=== PATIENT | female | born 2000 | race African-American/Black ===

== ENCOUNTER 2019-11-01 09:10 | Emergency (ER) | payer OTHER, SELFPAY ==
[2019-11-01 09:23] VITALS: BP 106/58; PULSE 78; RESP 18; TEMP 36.8; O2SAT 98
[2019-11-01 10:29] LABS: Bacteria Urine Few (2-10); Culture Indicated Urine Cult Not Indicated; RBC Urine 0-1/HPF (0-5/HPF); Squamous Epithelial Cell Urine 5-10 /HPF (0-5/HPF); WBC Urine 1-5/HPF (0-5/HPF)
--- NOTE | 2019-11-01 11:27 | ED_ITS ---
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 She reports LMP was about 6 weeks ago but does not remember exact date. She has been having mild cramping pain for last 10 days without vaginal bleeding or spotting. No history of in the past. Patient had taken home test which was positive but she reports couldn't believe so she is here today. Patient reports has not been using contraceptive and she is sexually active. Related Data Previous Rx's Medication Instructions Recorded prenat.vits,wil,zqr-kizo-iqweo 1 tab PO DAILY #60 tab 11/01/19 Allergies Allergy/AdvReac Type Severity Reaction Status Date / Time No Known Drug Allergies Allergy Verified 11/01/19 09:27 Review of Systems <JAYLON Boston - Last Filed: 11/01/19 11:32> Review of Systems Narrative: General: Denies fever, chills, fatigue, malaise, sweats. HEENT: Denies sinus pain, ear pain, sore throat, difficulty swallowing, dizziness. Respiratory: Denies dyspnea, cough, wheezing, hemoptysis, sputum. Cardiovascular: Denies chest pain, palpitations, orthopnea, edema. Gastrointestinal: See HPI : See HPI Musculoskeletal: Denies weakness, joint pain or bony pain. Skin: Denies rash, skin lesions, or other. Neurologic: Denies weakness, headache, numbness, change in speech, confusion, seizures, incoordination. Psychiatric: No concerning psychosocial issues. 12-point review of systems is negative except for those stated above. Patient History <JAYLON Boston - Last Filed: 11/01/19 11:32> Medical History (Updated 11/01/19 @ 11:29 by JAYLON Boston) No significant past medical history (Acute) Surgical History (Updated 11/01/19 @ 11:29 by JAYLON Boston) No pertinent past surgical history (Acute) Social History Smoking Status: Never smoker Smoking Status: Never smoker alcohol intake frequency: 0-2 drinks per day Substance Use Type: does not use Exam <JAYLON Boston - Last Filed: 11/01/19 11:32> Narrative Exam Narrative: General appearance: well developed, well nourished, in no acute distress. Head: normocephalic, atraumatic, no scalp lesions, non-tender. ENT: Hearing grossly intact. Nose without bleeding, purulent discharge, septal hematoma or deviation. A-irway patent. Neck/Thyroid: neck supple, full range of motion, no visible masses or meningeal signs. No JVD, non-tender without lymphadenopathy. Skin: no suspicious rashes, lesions over visible areas. Warm and dry and appropriate color for ethnicity. Heart: no clubbing, no cyanosis, no edema. S1 and S2 normal. RRR w/o murmurs, clicks, or bruits. Lungs: Breathing even and unlabored. No stridor. No accessory muscles used. Able to speak in full sentences. Chest: normal shape and expansion. Abdomen: non-obese, non-distended. Nontender to palpate. Active bowel sounds in 4 quadrants. Neurologic: alert and oriented. Cognitive exam, [employer] REC[employer] COORDINATOR and PNS grossly intact on informal exam. Psych: good eye contact, normal affect. Initial Vital Signs Initial Vital Signs: Vital Signs Temperature 98.3 F 11/01/19 09:23 Pulse Rate 78 11/01/19 09:23 Respiratory Rate 18 11/01/19 09:23 Blood Pressure 106/58 L 11/01/19 09:23 Pulse Oximetry 98 11/01/19 09:23 <Pankaj Recinos MD - Last Filed: 11/01/19 17:07> Initial Vital Signs Initial Vital Signs: Vital Signs Temperature 98.3 F 11/01/19 09:23 Pulse Rate 78 11/01/19 09:23 Respiratory Rate 18 11/01/19 09:23 Blood Pressure 106/58 L 11/01/19 09:23 Pulse Oximetry 98 11/01/19 09:23 Scores <JAYLON Boston - Last Filed: 11/01/19 11:32> GCS [place] coma scale eye opening: Spontaneous [place] coma scale verbal response: Orientated [place] coma scale motor response: Obey commands [place] coma scale total score: 15 Course <JAYLON Boston - Last Filed: 11/01/19 11:32> Orders Ordered: ED Orders 11/01/19 09:35 Urine Microscopic Stat Vital Signs Vital signs: Vital Signs - 8 hr 11/01/19 09:23 11/01/19 11:34 Temperature 98.3 F Pulse Rate 78 80 Respiratory Rate 18 16 Blood Pressure 106/58 L 103/75 Pulse Oximetry 98 100 <Pankaj Recinos MD - Last Filed: 11/01/19 17:07> Orders Ordered: ED Orders 11/01/19 09:35 Urine Microscopic Stat Vital Signs Vital signs: Vital Signs - 8 hr 11/01/19 09:23 11/01/19 11:34 Temperature 98.3 F Pulse Rate 78 80 Respiratory Rate 18 16 Blood Pressure 106/58 L 103/75 Pulse Oximetry 98 100 MDM - Recheck/Abnormal Lab/Rx <JAYLON Boston - Last Filed: 11/01/19 11:32> Differential Diagnosis Differential diagnosis: Likely other (, UTI) Medical Records Attestation: I reviewed the patient's medical records. Lab Data Attestation: I reviewed the patient's lab results. Labs: Lab Results 11/01/19 Range/Units 09:35 Urine RBC 0-1/hpf (0-5/HPF) Urine WBC 1-5/hpf (0-5/HPF) Ur Squamous Epith Cells 5-10 /hpf H (0-5/HPF) Urine Bacteria Few (2-10) H (None) Ur Culture Indicated? Cult not indicated Point of Care Testing Test Results Positive Urine Dip Bedside Urine Glucose Negative Bedside Urine Bilirubin - Negative Bedside Urine Ketone - Negative Urine Specific [place] 1.020 Bedside Urine Occult Blood - Negative Bedside Urine pH 7.0 Bedside Urine Protein +/- 15 Bedside Urine Urobilinogen - Negative Bedside Urine Nitrite - Negative Bedside Urine Leukocytes +/- 15 Esterase MDM Narrative Medical decision making narrative: This is a 19-year-old female who is in [place] presents to ED with would like test confirmed. Today's test for urine was positive. Urine test does not show obvious infection at this time. Patient discharged to home with vitamin and advised to follow up with primary care physician. This is . Patient does not complain vaginal bleeding or severe abdominal pain but mild cramping discomfort last 10 days. Patient advised to take [id number] Tylenol as needed for discomfort. Return precautions were discussed with patient and patient verbalized understanding and in agreement with the treatment plan. <Pankaj Recinos MD - Last Filed: 11/01/19 17:07> Lab Data Labs: Lab Results 11/01/19 Range/Units 09:35 Urine RBC 0-1/hpf (0-5/HPF) Urine WBC 1-5/hpf (0-5/HPF) Ur Squamous Epith Cells 5-10 /hpf H (0-5/HPF) Urine Bacteria Few (2-10) H (None) Ur Culture Indicated? Cult not indicated Point of Care Testing Test Results Positive Urine Dip Bedside Urine Glucose Negative Bedside Urine Bilirubin - Negative Bedside Urine Ketone - Negative Urine Specific [place] 1.020 Bedside Urine Occult Blood - Negative Bedside Urine pH 7.0 Bedside Urine Protein +/- 15 Bedside Urine Urobilinogen - Negative Bedside Urine Nitrite - Negative Bedside Urine Leukocytes +/- 15 Esterase Discharge Plan Departure Patient Disposition: Home Clinical Impression: Qualifiers: Weeks of gestation: less than 8 weeks Qualified Code(s): Z3A.01 - Less than 8 weeks gestation of Discharge Date/Time: 11/01/19 11:35 Instructions: DI for -- Discomforts and Remedies Activity Restrictions/Additional Instructions: You have been diagnosed with [early in per urine test. Urine test does not appears to be having on infection at this time. ]. What to do: *Take your medications as directed. vitamin has been transmitted to [facility]. *Follow up with your primary care provider in 2-3 days, call for an appointment. Let them know you were seen in the ED and that we asked you to be seen in follow up. *Return to ED if you have any new, worsening, or concerning symptoms, such as [abdominal pain, vaginal bleeding, chest pain, breathing difficulty, unable to tolerate fluids or any acute concerns]. Prescriptions: New prenat.vits,wil,avp-gydm-gabmy Tablet 1 tab PO DAILY Qty: 60 RF: 0 Referrals: [facility] [Outside]
[2019-11-01 11:34] VITALS: BP 103/75; PULSE 80; RESP 16; O2SAT 100
== END 2019-11-01 11:35 | disposition home or self-care (01) ==
PROVIDERS: Emergency Medicine; Emergency Provider Nurse Practitioner Family
DX: Z32.01 Encounter for pregnancy test, result positive (principal); Z3A.01 Less than 8 weeks gestation of pregnancy
CPT/HCPCS: 81003; 81015; 81025; 99282

== ENCOUNTER 2020-12-25 15:06 | Emergency (ER) | payer OTHER, SELFPAY ==
[2020-12-25 15:12] VITALS: BP 123/75; PULSE 110; RESP 18; TEMP 38.3; O2SAT 99; BMI 20.3
--- NOTE | 2020-12-25 15:22 | PC.NURSE ---
Patient is mildly tachycardic at 110bpm, presumably from her fever. I attempted to give her 800mg ibuprofen to treat both fever/tachycardia and her headache. She refused it and states she does not want ibuprofen or tylenol. States I took some yesterday and it only worked for like an hour.
[2020-12-25 15:54] LABS: COVID19 -Nasal RAPID Negative (Negative)
[2020-12-25] MEDS: ACETAMINOPHEN 325 MG TABLET 975 MG PO (15:59)
--- NOTE | 2020-12-25 16:12 | ED.FEVER ---
HPI - Fever <Catherine Garcia PA-C - Last Filed: 12/25/20 16:17> General Chief Complaint: Fever Stated Complaint: CHEST PAIN MIGRAINES Time Seen by Provider: 12/25/20 15:55 Source: patient Mode of arrival: Ambulatory History of Present Illness HPI Narrative: 20-year-old female with no reported past medical history presents to the ED with 5 days of fever, nasal congestion. Patient states that her symptoms started with a headache, fever and nasal congestion. Patient also endorses some substernal chest pain. Patient denies shortness of breath, cough, nausea, vomiting, abdominal pain, dysuria, dizziness, lightheadedness, syncope. Patient's last menstrual period was December 06, 2020. Patient denies any family cardiac history, early cardiac in the family. Related Data Previous Rx's Medication Instructions Recorded prenat.vits,wil,sxh-dmpf-ykwor 1 tab PO DAILY #60 tab 11/01/19 Allergies Allergy/AdvReac Type Severity Reaction Status Date / Time No Known Drug Allergies Allergy Verified 11/01/19 09:27 Review of Systems <Catherine Garcia PA-C - Last Filed: 12/25/20 16:17> Constitutional Constitutional: Denies chills, Denies fatigue, Reports fever(s), Denies frequent falls, Reports headache(s), Denies lethargy and Denies weakness Eyes Eyes: Denies change in vision, Denies eye discharge, Denies irritation and Denies loss of vision ENT Ears, Nose, Mouth, and Throat: Denies change in voice, Denies dizziness, Reports headache(s), Reports nasal congestion, Denies neck pain, Denies sore throat and Denies throat swelling Cardiovascular Cardiovascular: Reports chest pain, Denies irregular heart rhythm, Denies lightheadedness, Denies palpitations, Denies dyspnea, Denies dyspnea on exertion and Denies orthopnea Respiratory Respiratory: Denies cough, Denies dyspnea, Denies dyspnea on exertion and Denies wheezing Gastrointestinal Gastrointestinal: Denies abdominal pain, Denies change in bowel habits, Denies diarrhea, Denies nausea and Denies vomiting Musculoskeletal Musculoskeletal: Reports back pain, Denies neck pain and Denies numbness Integumentary/Breasts Skin/Breast: Denies pruritus, Denies erythema, Denies rash and Denies wounds Neurologic Neurologic: Denies behavioral changes, Denies confusion, Denies dizziness, Denies frequent falls, Reports headache(s), Denies loss of vision, Denies numbness and Denies weakness Psychiatric Psychiatric: Denies anxiety, Denies behavioral changes, Denies confusion, Denies depression, Denies homicidal ideation and Denies suicidal ideation Endocrine Endocrine: Denies fatigue, Denies flushing and Denies palpitations Hematologic/Lymphatic Hematologic/Lymphatic: Denies easy bruising Allergic/Immunologic Allergic/Immunologic: Denies urticaria, Denies throat swelling and Denies wheezing Patient History <Catherine Garcia PA-C - Last Filed: 12/25/20 16:17> Medical History No significant past medical history Surgical History No pertinent past surgical history Social History Smoking Status: Never smoker Smoking Status: Never smoker alcohol intake frequency: 0-2 drinks per day Substance Use Type: does not use Exam <Catherine Garcia PA-C - Last Filed: 12/25/20 16:17> Initial Vital Signs Initial Vital Signs: Vital Signs Temperature 100.9 F H 12/25/20 15:12 Pulse Rate 110 H 12/25/20 15:12 Respiratory Rate 18 12/25/20 15:12 Blood Pressure 123/75 12/25/20 15:12 Pulse Oximetry 99 12/25/20 15:12 Const General: cooperative HENMT Head: normocephalic and atraumatic Ears: external ears normal and TM's normal bilaterally Nose: external nose normal and No nasal discharge Face and sinus: sinuses nontender, face symmetric, no sinus tenderness and No dry mucous membranes Mouth: oral mucosae normal and moist mucous membranes Teeth and gingiva: dentition normal Throat: tonsils normal and uvula midline Eyes General: appearance normal, both eyes and all related structures Eyelids: eyelids normal Conjunctivae: conjunctivae normal Sclera: sclerae normal Pupils: PERRL EOM: EOM intact bilaterally Neck Neck: normal visual inspection, trachea midline, No lymphadenopathy, No midline deformity and No JVD Lymphatic: No lymphedema Chest Chest: normal inspection of the chest Resp Effort & Inspection: normal respiratory effort, able to speak in complete sentences, no respiratory distress and no use of accessory muscles Auscultation: clear to auscultation bilaterally, no rales, no rhonchi and no wheezes Cardio Rate: regular rate Rhythm: regular rhythm Heart Sounds: no click, no gallops, no murmurs and no rubs Pulses: normal peripheral pulses GI Inspection: non-distended Palpation: soft, no hepatosplenomegaly, No guarding, No pulsatile mass and No tender Auscultation: normal bowel sounds Back/Spine/Pelvis Back: No CVA tenderness Cervical Spine: cervical ROM normal and No pain with cervical ROM Thoracic/Lumbar Spine: thoracic and lumbar spine normal to inspection Skin General: no rashes or lesions noted, No jaundice and No petechiae Neuro General: patient alert, patient oriented x3, gait normal and no focal motor deficits Speech: speech normal Extrem General: full ROM, no clubbing, cyanosis or edema, no pedal edema and no calf tenderness Psych Appearance: well kempt Mental Status: mental status grossly normal Attitude: cooperative Thought Content: normal and suicidality Judgment: judgment good <Pankaj Recinos MD - Last Filed: 12/25/20 17:37> Initial Vital Signs Initial Vital Signs: Vital Signs Temperature 100.9 F H 12/25/20 15:12 Pulse Rate 110 H 12/25/20 15:12 Respiratory Rate 18 12/25/20 15:12 Blood Pressure 123/75 12/25/20 15:12 Pulse Oximetry 99 12/25/20 15:12 Course <Catherine Garcia PA-C - Last Filed: 12/25/20 16:17> Orders Ordered: ED Orders 12/25/20 15:13 COVID19 -Nasal swab/Pre-Proc Stat Discontinued Medications Acetaminophen (Acetaminophen 325 Mg Tablet) 975 mg PO NOW ONE Stop: 12/25/20 15:54 Last Admin: 12/25/20 15:59 Dose: 975 mg Documented by: RAIN Ibuprofen (Ibuprofen 400 Mg Tablet) 800 mg PO NOW ONE Stop: 12/25/20 15:17 Last Admin: 12/25/20 15:19 Dose: Not Given Documented by: VIC Vital Signs Vital signs: Vital Signs - 8 hr 12/25/20 15:12 12/25/20 16:21 Temperature 100.9 F H 100 F H Pulse Rate 110 H 100 H Respiratory Rate 18 15 Blood Pressure 123/75 Pulse Oximetry 99 99 <Pankaj Recinos MD - Last Filed: 12/25/20 17:37> Orders Ordered: ED Orders 12/25/20 15:13 COVID19 -Nasal swab/Pre-Proc Stat Discontinued Medications Acetaminophen (Acetaminophen 325 Mg Tablet) 975 mg PO NOW ONE Stop: 12/25/20 15:54 Last Admin: 12/25/20 15:59 Dose: 975 mg Documented by: RAIN Ibuprofen (Ibuprofen 400 Mg Tablet) 800 mg PO NOW ONE Stop: 12/25/20 15:17 Last Admin: 12/25/20 15:19 Dose: Not Given Documented by: VIC Vital Signs Vital signs: Vital Signs - 8 hr 12/25/20 15:12 12/25/20 16:21 Temperature 100.9 F H 100 F H Pulse Rate 110 H 100 H Respiratory Rate 18 15 Blood Pressure 123/75 Pulse Oximetry 99 99 MDM - Fever <Catherine Garcia PA-C - Last Filed: 12/25/20 16:17> Lab Data Attestation: I reviewed the patient's lab results. Lab results narrative: COVID-19 negative Labs: Lab Results 12/25/20 Range/Units 15:13 SARS-CoV-2 (PCR) Negative (Negative) [facility] Narrative Medical decision making narrative: 20-year-old female with no reported past medical history presents to the ED with 5 days of fever, nasal congestion. Given benign physical exam, no cardiac history, no cardiac risk factors, URI symptoms, likely viral URI. Patient tested negative for COVID-19. Will give Tylenol for fever and pain. Will discharge home with ED return precautions. <Pankaj Recinos MD - Last Filed: 12/25/20 17:37> Lab Data Labs: Lab Results 12/25/20 Range/Units 15:13 SARS-CoV-2 (PCR) Negative (Negative) Discharge Plan Departure Patient Disposition: Home Clinical Impression: URI (upper respiratory infection) Qualifiers: URI type: unspecified URI Qualified Code(s): J06.9 - Acute upper respiratory infection, unspecified Instructions: DI for Viral Upper Respiratory Infection -- Adult Activity Restrictions/Additional Instructions: You were evaluated in the ED today for a fever and chest pain. Your physical exam is very reassuring, your COVID test was negative. Your symptoms are likely due to a viral upper respiratory infection. Continue to stay hydrated. You can take Tylenol and ibuprofen for your symptoms. Return to the ED if you have worsening symptoms, shortness of breath, fevers unresponsive to Tylenol or ibuprofen. Prescriptions: No Action prenat.vits,wil,fjo-hpwt-iugfw Tablet 1 tab PO DAILY Qty: 60 RF: 0 Stand Alone Forms: Work Release Note
[2020-12-25 16:21] VITALS: PULSE 100; RESP 15; TEMP 37.7; O2SAT 99
== END 2020-12-25 16:21 | disposition home or self-care (01) ==
PROVIDERS: Emergency Medicine; Emergency Provider Student in an Organized Health Care Education/Training Program
DX: J06.9 Acute upper respiratory infection, unspecified (principal); Z20.822 Contact with and (suspected) exposure to COVID-19
CPT/HCPCS: 87635; 99283; C9803

== ENCOUNTER → 2021-10-30 09:36 | Outpatient (CLI) | payer OTHER, SELFPAY ==
--- NOTE | 2021-10-30 09:40 | DI.RAD.S_ITS ---
PROCEDURE: FL BARIUM SWALLOW INDICATIONS: COUGH COMPARISON: None. FINDINGS: Function: There is normal esophageal peristalsis. No elicited gastroesophageal reflux. There is normal transit of a calibrated barium tablet through the esophagus into the stomach. Morphology: Air-contrast images demonstrate normal mucosal morphology. Single contrast views show no esophageal strictures, extrinsic mass effects, or diverticula. Limited images of the stomach demonstrate normal appearance. IMPRESSION: Normal barium swallow. Dictated by: Ramy Reyna M.D. on 10/30/2021 at 10:39 Approved by: Ramy Reyna M.D. on 10/30/2021 at 10:39
== END ==
PROVIDERS: PCP Internal Medicine; Referring Provider Internal Medicine; Visit Provider Internal Medicine
DX: R05.9 Cough, unspecified (principal)
CPT/HCPCS: 74220

== ENCOUNTER 2022-06-02 23:22 | Emergency (ER) | payer OTHER, SELFPAY ==
[2022-06-02 23:27] VITALS: BP 129/71; PULSE 100; RESP 18; O2SAT 98; BMI 23.6
--- NOTE | 2022-06-02 23:40 | ED_ITS ---
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 She describes pain as a calf strain type feeling that makes it difficult to stand. She does not describe recent trauma, increase physical activity. 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 She does have a new tattoo over the entire front of her calf approximately a month old that does not look significantly infected it is somewhat plump as would be expected for a month old tattoo. No fevers or chills. She is not currently on exogenous hormones Related Data Previous Rx's Medication Instructions Recorded prenat.vits,wil,urh-yslm-njxoe 1 tab PO DAILY #60 tabs 11/01/19 cephalexin 500 mg capsule 500 mg PO TID #15 caps 06/03/22 Allergies Allergy/AdvReac Type Severity Reaction Status Date / Time No Known Drug Allergies Allergy Verified 11/01/19 09:27 Review of Systems Review of Systems Narrative: Remainder of complete review of systems is otherwise unremarkable except for that included in the HPI. Patient History Medical History No significant past medical history Surgical History No pertinent past surgical history Social History Smoking Status: Never smoker Smoking Status: Never smoker alcohol intake frequency: 0-2 drinks per day Substance Use Type: does not use Exam Initial Vital Signs Initial Vital Signs: Vital Signs Pulse Rate 100 H 06/02/22 23:27 Respiratory Rate 18 06/02/22 23:27 Blood Pressure 129/71 06/02/22 23:27 Pulse Oximetry 98 06/02/22 23:27 Oxygen Delivery Method Room Air 06/02/22 23:27 General: Alert appropriate in no acute distress Respiratory: Able to speak in full sentences, no obvious respiratory distress Skin: No obvious rashes, warm and dry Neurologic: Grossly intact no obvious asymmetries or abnormalities Psych: appropriate insight and affect, cooperative Extremities: Left lower extremity has a new tattoo with fullness around the tattoo consistent with the age of the tattoo and does not appear acutely infected. The left calf is not particularly swollen when compared to the right. She has tenderness with flexion and extension of the ankle. She is able to stand fully on the left side with some tenderness. There is no knee pain, no particular tenderness behind the knee, in the groin, no inguinal adenopathy and no significant thigh swelling. She has full and nontender range of motion at the left knee and left hip. No swelling or tenderness to the left ankle Course Vital Signs Vital signs: Vital Signs - 8 hr 06/02/22 23:27 Pulse Rate 100 H Respiratory Rate 18 Blood Pressure 129/71 Pulse Oximetry 98 Oxygen Delivery Method Room Air MDM - Extremity Injury (Lower) MDM Narrative Medical decision making narrative: CC: Left calf pain for 12 hours Complicating co-morbidities: Recent tattoo a month ago, recent extended plane trip well over a week ago, no hormones. Data collected from: patient, Differential considered: DVT, acute calf strain, knee or ankle pain, reaction to new tattoo, developing cellulitis Exam documented above, pertinent findings include: Exam is notable for calf tenderness without additional findings. Lab Test are not indicated with today's evaluation Imaging studies independently reviewed: Bedside ultrasound was performed showing patent deep venous system through the entire left lower extremity. No superficial areas of thrombophlebitis Treatments: Ibuprofen and Tylenol Discussion: 21-year-old woman with acute left lower extremity pain without evidence for DVT, obvious infection, ankle, knee or hip joint abnormalities. With a new tattoo and slight fullness around the tattoo possibility of infection remains. We will up to ask her to treat this conservatively with elevation, ice, ibuprofen and Tylenol. Will also give her a prescription for Keflex on the off chance that she is developing a cellulitis related to the recent tattoo. Went over reasons to have the prescription filled and reasons to return to the emergency department. She is safe for discharge home Discharge Plan Departure Patient Disposition: Home Clinical Impression: Pain of left calf Activity Restrictions/Additional Instructions: Thank you for coming in today The most likely reason that your leg is hurting is in fact an acute strain of your calf muscle. Keeping leg elevated for the next day or so, using 400 mg of ibuprofen (2 upms-vlv-jqlrqwu pills) and 1 Tylenol every 6 hours can be very helpful in controlling pain. There is no evidence of blood clot, joint abnormalities at your hip ankle or knee that might be causing the calf pain. Your tattoo looks like it is healing nicely however there is possibility that there is a low-grade infection that is starting. I have given you a prescription for Keflex, and antibiotic. If you notice that the pain is getting worse, there is swelling redness or new findings by Friday, I would fill this prescription. If you begin the antibiotics you do need to take all 5 days. If you find that you are getting worse or develop any new symptoms, please feel free to return to the emergency department for further evaluation. Prescriptions: New cephalexin 500 mg capsule 500 mg PO TID Qty: 15 0RF No Action prenat.vits,wil,fzp-hrgo-dhqkh Tablet 1 tab PO DAILY Qty: 60 0RF Referrals: Blue Means MD [Primary Care Provider] - Stand Alone Forms: Patient Portal/API, Work Release Note
[2022-06-03] MEDS: IBUPROFEN 400 MG TABLET PO (00:17)
[2022-06-03] MEDS: ACETAMINOPHEN 325 MG TABLET PO (00:17)
== END 2022-06-03 00:27 | disposition home or self-care (01) ==
PROVIDERS: Emergency Provider Emergency Medicine; PCP Internal Medicine
DX: M79.605 Pain in left leg (principal)
CPT/HCPCS: 99282; 99283

== ENCOUNTER 2022-07-29 08:23 | Emergency (ER) | payer OTHER, SELFPAY ==
[2022-07-29 08:54] VITALS: BP 115/69; PULSE 83; RESP 16; TEMP 36.6; O2SAT 98; BMI 23.1
--- NOTE | 2022-07-30 10:32 | ED.EAR ---
HPI - Ear Problem <Catherine Garcia PA-C - Last Filed: 07/30/22 10:35> General Chief complaint: Ear Stated complaint: ear split Time Seen by Provider: 07/29/22 11:18 Source: patient Mode of arrival: Ambulatory History of Present Illness HPI Narrative: 21-year-old female presents to the ED status post a earlobe injury sustained just prior to arrival. Patient states she was playing with her dog when her ear ring was pulled through the whole by accident. The bleeding was controlled with pressure. Patient denies any other injuries. Patient's childhood vaccines are up-to-date. Patient came into the ED to be evaluated if she needed any repair for the injury. Related Data Previous Rx's Medication Instructions Recorded prenat.vits,wil,[id number]-fvhw-[id number] 1 tab PO DAILY #60 tabs 11/01/19 cephalexin 500 mg capsule 500 mg PO TID #15 caps 06/03/22 Allergies Allergy/AdvReac Type Severity Reaction Status Date / Time No Known Drug Allergies Allergy Verified 07/29/22 08:56 Review of Systems <Catherine Garcia PA-C - Last Filed: 07/30/22 10:35> Review of Systems ROS Unobtainable: All systems reviewed & are unremarkable except as noted in HPI and below Constitutional Constitutional: Denies chills, Denies fatigue, Denies fever(s), Denies frequent falls, Denies lethargy and Denies weakness Eyes Eyes: Denies change in vision, Denies eye discharge, Denies irritation and Denies loss of vision ENT Ears, Nose, Mouth, and Throat: Denies change in voice, Denies dizziness, Denies neck pain, Denies sore throat and Denies throat swelling Cardiovascular Cardiovascular: Denies chest pain, Denies irregular heart rhythm, Denies lightheadedness, Denies palpitations, Denies dyspnea, Denies dyspnea on exertion and Denies orthopnea Respiratory Respiratory: Denies cough, Denies dyspnea, Denies dyspnea on exertion and Denies wheezing Gastrointestinal Gastrointestinal: Denies abdominal pain, Denies change in bowel habits, Denies diarrhea, Denies nausea and Denies vomiting Genitourinary Genitourinary: Denies hematuria, Denies flank pain, Denies urinary incontinence and Denies urinary urgency Musculoskeletal Musculoskeletal: Denies back pain, Denies muscle weakness, Denies neck pain, Denies numbness and Denies tingling Integumentary/Breasts Skin/Breast: Denies pruritus, Denies erythema, Denies rash and Denies wounds Comments: Right earlobe laceration Neurologic Neurologic: Denies behavioral changes, Denies confusion, Denies dizziness, Denies frequent falls, Denies loss of vision, Denies numbness, Denies tingling and Denies weakness Psychiatric Psychiatric: Denies anxiety, Denies behavioral changes, Denies confusion, Denies depression, Denies homicidal ideation and Denies suicidal ideation Endocrine Endocrine: Denies fatigue, Denies flushing and Denies palpitations Hematologic/Lymphatic Hematologic/Lymphatic: Denies easy bruising Allergic/Immunologic Allergic/Immunologic: Denies urticaria, Denies throat swelling and Denies wheezing Patient History <Catherine Garcia PA-C - Last Filed: 07/30/22 10:35> Medical History No significant past medical history Surgical History No pertinent past surgical history Social History Smoking Status: Never smoker Smoking Status: Never smoker alcohol intake frequency: 0-2 drinks per day Substance Use Type: does not use Exam <Catherine Garcia PA-C - Last Filed: 07/30/22 10:35> Narrative Exam Narrative: Const General:?cooperative, healthy appearing and comfortable [facility] Head:?normal to inspection Ears:?hearing grossly normal bilaterally Nose:?external nose normal Face and sinus:?normal facial exam and sinuses nontender Mouth:?oral mucosae normal Throat:?posterior oropharynx normal Eyes General:?appearance normal, both eyes and all related structures Neck Neck:?normal visual inspection and no lymphadenopathy noted Resp Effort & Inspection:?normal respiratory effort Auscultation:?clear to auscultation bilaterally Cardio Rate:?regular rate Rhythm:?regular rhythm Integumentary There is a earlobe laceration to the right earlobe, where the earring has pulled right through the piercing. Edges are already approximated back together. No bleeding. Neuro General:?patient alert, patient awake and patient oriented x3 Initial Vital Signs Initial Vital Signs: Vital Signs Temperature 98 F 07/29/22 08:54 Pulse Rate 83 06/12/23 08:54 Respiratory Rate 16 07/29/22 08:54 Blood Pressure 115/69 07/29/22 08:54 Pulse Oximetry 98 07/29/22 08:54 Oxygen Delivery Method Room Air 07/29/22 08:54 <Amy Cadena DO - Last Filed: 07/30/22 19:07> Initial Vital Signs Initial Vital Signs: Vital Signs Temperature 98 F 07/29/22 08:54 Pulse Rate 83 07/29/22 08:54 Respiratory Rate 16 07/29/22 08:54 Blood Pressure 115/69 07/29/22 08:54 Pulse Oximetry 98 07/29/22 08:54 Oxygen Delivery Method Room Air 07/29/22 08:54 Medical Decision Making <Catherine Garcia PA-C - Last Filed: 07/30/22 10:35> MDM Narrative Medical decision making narrative: 21-year-old female presents to the ED status post a earlobe injury sustained just prior to arrival. Physical exam shows that the earring was pulled through, causing a tear through the earlobe. However, the edges of the laceration have already approximated back together and no repair is indicated at this time. Discussed with patient. ED return precautions were discussed with patient. Patient verbalized understanding. Medical records reviewed: Yes Discharge Plan Departure Patient Disposition: Home Clinical Impression: Ear lobe laceration Instructions: DI for Minor Laceration Activity Restrictions/Additional Instructions: You were evaluated in the ED today for a right-sided earlobe injury. It looks like your earring was pulled through the ear piercing in the earlobe. The skin is already coming together well and you will not need any repair today. Please keep the wound clean and dry. Please follow-up with a plastic surgeon or your PCP for further evaluation. Watch for signs of infection including redness, warmth, pain, swelling, discharge. Return to the ED if you note any signs of infection. Prescriptions: No Action prenat.vits,wil,[id number] Tablet 1 tab PO DAILY Qty: 60 0RF cephalexin 500 mg capsule 500 mg PO TID Qty: 15 0RF Referrals: Blue Means MD [Primary Care Provider] - Stand Alone Forms: Patient Portal/API, Work Release Note <Amy Cadena DO - Last Filed: 07/30/22 19:07> Cosign ED Attending Cosignature Attestation: I was immediately available in the department for consultation. Documentation has been reviewed.
== END 2022-07-29 11:48 | disposition home or self-care (01) ==
PROVIDERS: Emergency Provider Student in an Organized Health Care Education/Training Program; PCP Internal Medicine
DX: S01.311A Laceration without foreign body of right ear, initial encounter (principal); X58.XXXA Exposure to other specified factors, initial encounter
CPT/HCPCS: 99281

== ENCOUNTER 2022-10-30 09:45 | Emergency (ER) | payer OTHER, SELFPAY ==
[2022-10-30 09:51] VITALS: BP 106/52; PULSE 82; RESP 16; TEMP 36.8; O2SAT 98
[2022-10-30 09:54] VITALS: BMI 23.3
[2022-10-30 10:38] LABS: Influenza A - CEPHEID Flu A NEGATIVE (NEGATIVE); Influenza B - CEPHEID Flu B NEGATIVE (NEGATIVE); Respiratory Syncytial Virus Negative (Negative)
[2022-10-30 10:42] LABS: COVID-19 CEPHEID 4-PLEX PCR POSITIVE (Negative)
--- NOTE | 2022-10-30 10:56 | ED.URI ---
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 Complaints of cough cold congestion fever chills but no dyspnea. Boyfriend has same symptoms. Patient started with her symptoms yesterday. COVID swab is positive. No trouble breathing. Vital signs are reassuring. Patient works with the [employer]. Work note required Related Data Previous Rx's Medication Instructions Recorded prenat.vits,wil,[id number]-[id number] 1 tab PO DAILY #60 tabs 11/01/19 cephalexin 500 mg capsule 500 mg PO TID #15 caps 06/03/22 Allergies Allergy/AdvReac Type Severity Reaction Status Date / Time No Known Drug Allergies Allergy Verified 07/29/22 08:56 Review of Systems Review of Systems Narrative: GENERAL: Positive chills, fatigue, malaise, fever, sweats. HEENT: negative sinus pain, ear pain, sore throat RESPIRATORY: negative dyspnea, pause cough CARDIOVASCULAR: negative chest pain, palpitations GASTROINTESTINAL: negative nausea, vomiting, abdominal pain : negative dysuria, frequency, hematuria MUSCULOSKELETAL: Positive muscle or bony pain SKIN: negative rash, skin lesions NEUROLOGIC: negative weakness, numbness ROS Unobtainable: All systems reviewed & are unremarkable except as noted in HPI and below Patient History Medical History No significant past medical history Surgical History No pertinent past surgical history Social History Smoking Status: Never smoker Smoking Status: Never smoker alcohol intake frequency: 0-2 drinks per day Substance Use Type: does not use Exam Narrative Exam Narrative: GENERAL: in no distress, not toxic not dyspneic HEAD: Normocephalic. EYES: Pupils equal round NECK: Trachea midline. CARDIOVASCULAR: Regular rate and rhythm RESPIRATORY: Clear to auscultation. Breath sounds equal bilaterally. No wheezes, rales, or rhonchi. Speaking full sentences. No respiratory distress GASTROINTESTINAL: Abdomen soft, non-tender EXTREMITIES: No gross deformities. BACK: No flank tenderness. NEURO: AOx4. SKIN: Warm and dry PSYCH: Not anxious, is cooperative Initial Vital Signs Initial Vital Signs: Vital Signs Temperature 98.3 F 10/30/22 09:51 Pulse Rate 82 10/30/22 09:51 Respiratory Rate 16 10/30/22 09:51 Blood Pressure 106/52 L 10/30/22 09:51 Pulse Oximetry 98 10/30/22 09:51 Course Orders Ordered: ED Orders 10/30/22 09:53 Covid-19 + FLU A/B + RSV - PCR Stat Vital Signs Vital signs: Vital Signs - 8 hr 10/30/22 09:51 Temperature 98.3 F Pulse Rate 82 Respiratory Rate 16 Blood Pressure 106/52 L Pulse Oximetry 98 MDM - URI/Sore Throat Lab Data Labs: Lab Results 10/30/22 Range/Units 09:53 SARS-CoV-2 (PCR) Positive H (Negative) Influenza A (RT-PCR) Flu a negative (NEGATIVE) Influenza B (RT-PCR) Flu b negative (NEGATIVE) RSV (PCR) Negative (Negative) [facility] Narrative Medical decision making narrative: 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 Complaints of cough cold congestion fever chills but no dyspnea. Boyfriend has same symptoms. Patient started with her symptoms yesterday. COVID swab is positive. No trouble breathing. Vital signs are reassuring. Patient works with the [employer]. Work note required After history and exam respiratory panel, no blood work or imaging indicated. No respiratory distress. [facility] CC: Upper respiratory symptoms Complicating co-morbidities: None Data collected from: Patient Medical records reviewed: No recent visit for this complaint Differential considered: Includes but not limited to bronchitis pneumonia COVID-19 viral infection Exam documented above, pertinent findings include: Clear lung sounds Lab Test results independently reviewed as above. Pertinent findings: Positive COVID Treatments: None required Re-evaluations: Reviewed results and exam with patient. Agrees for quarantine 5 days. Work note provided. No medication prescription indicated. No hypoxia no tachypnea has clear lung sounds. Return precautions reviewed. They desire discharge home. Discussion: Appropriate for discharge home. Return precautions reviewed with patient. Work note provided. No prescriptions or medications indicated to prescribe. No laboratory blood work needed or imaging. Exam is reassuring. No tachypnea no hypoxia speaking full sentences has clear lung sounds. Patient desires discharge home Diagnosis: COVID-19 Discharge Plan Departure Patient Disposition: Home Clinical Impression: COVID-19 Instructions: DI for COVID-19 (Suspected or Confirmed ) Activity Restrictions/Additional Instructions: Nasal swab shows ER positive for COVID. Please quarantine 5 days from 1st day of your symptoms. Continue [id number] Tylenol or ibuprofen for fever aches and pain. Keep well hydrated. Work note has been provided for you. See family doctor in a week for re-evaluation. Or call provided clinic. Call provided primary care referral phone number to establish family doctor. Call [phone]. No prescriptions are indicated at this time Prescriptions: No Action prenat.vits,wil,[id number] Tablet 1 tab PO DAILY Qty: 60 0RF cephalexin 500 mg capsule 500 mg PO TID Qty: 15 0RF Referrals: Blue Means MD [Primary Care Provider] - Stand Alone Forms: Patient Portal/API, Work Release Note
== END 2022-10-30 11:07 | disposition home or self-care (01) ==
PROVIDERS: Emergency Provider Emergency Medicine; PCP Internal Medicine
DX: U07.1 COVID-19 (principal)
CPT/HCPCS: 0241U; 99282